=== PATIENT | male | born 1970 | race Caucasian/White ===

== ENCOUNTER 2018-04-15 13:00 | Outpatient (CLI) | payer BC, OTHER | END 2018-04-15 13:01 | disposition home or self-care (01) | LOC: CONVCARE 13:00 | PROVIDERS: ATTEND Orthopaedic Surgery | DX: M25.512 Pain in left shoulder (principal); M25.511 Pain in right shoulder; M75.42 Impingement syndrome of left shoulder; M75.41 Impingement syndrome of right shoulder | CPT/HCPCS: 73030 ==